=== PATIENT | female | born 1975 | race African-American/Black ===

== ENCOUNTER 2018-03-11 14:37 | Emergency (ER) | payer OTHER ==
[~2018-03-11] VITALS: Ht 160 cm; Wt 93.4 kg
[2018-03-11] MEDS ORDERED: MUSINEX (14:55)
[2018-03-12] MEDS ORDERED: KETO10TA2 PO (00:39)
[2018-03-12] MEDS ORDERED: ZITHROMAX500 MG PO (00:39)
[2018-03-12] MEDS ORDERED: SYMBICORT 16010.2 GM IH (00:39)
[2018-03-12] MEDS ORDERED: INTESTINEX680 M1 PO (00:43)
[2018-03-12] MEDS ORDERED: PEPCID AC20 MG PO (00:43)
== END 2018-03-12 00:54 ==
LOC: ER 14:37
DX: N83.291 Other ovarian cyst, right side (principal); R10.31 Right lower quadrant pain; J06.9 Acute upper respiratory infection, unspecified